=== PATIENT | female | born 2000 | race Caucasian/White ===

== ENCOUNTER 2018-09-20 03:40 | Emergency (ER) | payer SELFPAY ==
[2018-09-20 03:49] VITALS: BP 114/73
--- NOTE | 2018-09-20 04:17 | EDPHY ---
H & P Stated Complaint: mech fall down 6 stairs, hit forehead, poss brief LOC, ETOH Time Seen by Provider: 09/20/18 03:51 HPI/ROS: HPI The patient presents with a fall down approximately 6 stairs onto a wooden floor which occurred just prior to arrival. The patient had been drinking alcohol earlier in the night and believes she lost her footing and fell forward. She denies any loss of consciousness, headache, vomiting, behavioral change, difficulty walking or any weakness. She does not have any other injuries. REVIEW OF SYSTEMS 10 systems were reviewed and negative with the exception of the elements mentioned in the history of present illness. PMHx: Prior concussion Soc Hx: College student, uses alcohol occasionally PHYSICAL General Appearance: Alert, no distress Head: There is a left-sided 2 cm frontal hematoma Eyes: Pupils equal and round no pallor or injection ENT, Mouth: Mucous membranes moist Respiratory: There are no retractions, lungs are clear to auscultation Cardiovascular: Regular rate and rhythm Gastrointestinal: Abdomen is soft and non-tender, no masses, bowel sounds normal Neurological: Alert and oriented x3, cranial nerves 2-12 intact, 5/5 strength in upper and lower extremities which is symmetric. Skin: Warm and dry, no rashes Musculoskeletal: Neck is supple non tender Extremities: symmetrical, full range of motion Psychiatric: Patient is oriented X 3, there is no agitation Source: Patient Exam Limitations: No limitations - Personal History LMP (Females 10-55): 8-14 Days Ago Current Tetanus/Diphtheria Vaccine: Yes Current Tetanus Diphtheria and Acellular Pertussis (TDAP): Yes - Medical/Surgical History Hx Asthma: Yes Hx Chronic Respiratory Disease: No Hx Diabetes: No Hx Cardiac Disease: No Hx Renal Disease: No Hx Cirrhosis: No Hx Alcoholism: No Hx HIV/AIDS: No Hx Splenectomy or Spleen Trauma: No Other PMH: vocal cord dysfunction, concussion, asthma,ADHD Constitutional: Initial Vital Signs Temperature (C) 36.5 C 09/20/18 03:45 Heart Rate 99 09/20/18 03:45 Respiratory Rate 20 09/20/18 03:45 Blood Pressure 114/73 09/20/18 03:45 O2 Sat (%) 99 09/20/18 03:45 O2 Delivery Mode Room Air Allergies/Adverse Reactions: No Known Allergies Allergy (Unverified 09/20/18 03:45) Home Medications: Medication Instructions Recorded Adderall 10 MG (*) 09/20/18 Medical Decision Making Differential Diagnosis: 17-year-old healthy female presents with fall down 6 stairs just prior to arrival in the setting of alcohol intoxication, sustaining frontal hematoma. On exam, has normal neurologic evaluation. She does not have any vision change , behavioral change, vomiting. By nexus 2 criteria, she does not require for CT scan of her head. She could have suffered from a mild concussion and I have discussed this with her. She is to follow up in 1-2 days if she has any ongoing symptoms. Departure - Departure Disposition: Home, Routine, Self-Care Clinical Impression: Fall down stairs Qualifiers: Encounter type: initial encounter Qualified Code(s): W10.8XXA - Fall (on) (from ) other stairs and steps, initial encounter Hematoma of frontal scalp Qualifiers: Encounter type: initial encounter Qualified Code(s): S00.03XA - Contusion of scalp, initial encounter Head injury Qualifiers: Encounter type: initial encounter Qualified Code(s): S09.90XA - Unspecified injury of head, initial encounter Condition: Good Instructions: Head Injury (ED) Additional Instructions: I recommend you take ibuprofen 400 mg every 6 hr as needed if you have a headache. Please use an ice pack on your forehead. Return to the ER if worse in any way. Referrals: GRISEL Bradford,. [Clinic] - As per Instructions
== END 2018-09-20 04:25 | disposition home or self-care (01) ==
DX: S00.03XA Contusion of scalp, initial encounter (principal); W10.8XXA Fall (on) (from) other stairs and steps, initial encounter; Y92.9 Unspecified place or not applicable; Y93.9 Activity, unspecified; Y99.9 Unspecified external cause status

== ENCOUNTER 2018-11-30 14:01 | Emergency (ER) | payer OTHER ==
--- NOTE | 2018-11-30 14:10 | EDPHY ---
General - History Smoking Status: Current some day smoker Time Seen by Provider: 11/30/18 14:10 Narrative: CLINICAL IMPRESSION: Shortness of breath, runny nose, congestion, cough ASSESSMENT/PLAN: Patient is a 18-year-old female with no significant medical history who presents to the emergency department with a constellation of symptoms to include shortness of breath that has been ongoing for 2 weeks, runny nose, congestion, cough, myalgias, intermittent headaches and diarrhea. Patient is afebrile, she is tired appearing however not toxic-appearing on my examination. She was noted to be tachycardic on arrival, unable to PERC out. CBC revealed no evidence of leukocytosis. BMP grossly unremarkable. Influenza negative. Dimer within normal limits. Patient has sudden onset of shortness of breath without any other associated symptoms at original onset, although dimer was negative well's criteria is moderate with concern for possible pulmonary embolism. Proceeded with CTA chest. Her symptoms are consistent with upper respiratory infection, cough and shortness of breath. This could be viral in nature however still concern for pulmonary embolus- results pending at this time. The patient remained hemodynamically stable, heart rate normalized into the 80s. On repeat examination prior to transfer of care to Dr. Wright the patient reports that she is actually feeling better than when she arrived. Her heart rate normalized into the 80s. Dispo pending at this time. DIFFERENTIAL DX: Shortness of breath including but not limited to pulmonary infectious process, COPD, asthma, pulmonary embolus and congestive heart failure. ED COURSE: 1435: Case discussed with Dr. Wright. 1515: On repeat examination the patient's heart rate has normalized into the 80s, she reports feeling better. Still awaiting chest x-ray. 1644: Chest x-ray with mild reactive airway disease, no evidence of consolidation or pneumothorax. Influenza still pending. On repeat exam the patient continues to feel better, heart rate was 86. We discussed reassuring findings of negative D-dimer, discussed CT scanning for definitive imaging to further evaluate etiology of her shortness of breath. The patient refuses CT at this time, she would prefer conservative management with strict return precautions. 1700: In further discussion patient would like to proceed with CT a chest. All aspects of this case were discussed with Dr. Wright, he will resume care of this patient at this time. CHIEF COMPLAINT: Shortness of breath, elevated heart rate, runny nose, congestion, cough HPI: Patient is a 18-year-old female with no significant medical history presents to the emergency department with complaints of shortness of breath escalating over the last 2 weeks, runny nose, congestion, cough, myalgias, intermittent headache and diarrhea. Patient reports 2 weeks ago she had a sudden onset feeling of shortness of breath, it was constant however alleviated when she would sit down. She denied any upper respiratory symptoms or cough at this time. Several days later she did develop runny nose, congestion and cough which worsened her shortness of breath. Since that time her runny nose, congestion and cough have been improving however she is still feeling short of breath. She does report pain upon inspiration across her entire chest, denies any pain at rest. That has been going on for the last 2 weeks as well. She reports subjective fevers, myalgias, intermittent headaches and diarrhea for the last several days. She denies any nausea or vomiting. She denies any abdominal pain. She is currently on control. She was seen at urgent care prior to arrival in sent here with concerns for possible pulmonary embolus. PMH: Denies Pertinent Past Surgical History: Denies Family History: Noncontributory Social History: Denies illicit drug use, occasional cigarette smoking, REVIEW OF SYSTEMS: All other systems negative Constitutional: Fever, chills, decreased appetite. Eyes: No discharge, vision change ENT: Runny nose, congestion. No sore throat, ear pain. Cardiovascular: No palpitations. Respiratory: Cough, shortness of breath. Gastrointestinal: Diarrhea. No abdominal pain, no vomiting. Genitourinary: No hematuria, dysuria, flank pain, pelvic pain Musculoskeletal: Myalgias. No back pain, joint swelling, joint pain. Skin: No rashes, color change. Neurological: Headache. No dizziness, weakness. PHYSICAL EXAM: General Appearance: Patient is well-developed, she is tired appearing however not toxic-appearing. HENT: Normocephalic, atraumatic. Bilateral external ears are normal. Bilateral tympanic membranes are normal with pearly alberto reflex. Nares are clear, mucosa is pink. Oropharynx is clear, uvula is midline. There is no tonsillar enlargement or exudate. The dentition is normal. Eyes: PERRLA, no acute vision change, nystagmus, swelling, discharge, pain or photosensitivity. Conjunctiva pink, no pallor or injection Neck: Supple, nontender, no lymphadenopathy, no midline pain, FROM, no meningismus. Respiratory: There are no retractions, rhonchi noted generalized right lung, no wheeze or rales. Cardiac: Tachycardic, no murmurs or gallops. Gastrointestinal: Abdomen is soft, nontender, bowel sounds normal, no masses/ hernia, no rigidity, guarding or focal peritoneal findings. Neurological: Alert and oriented x 3, CN 2-12 grossly intact, normal gait no ataxia, DTR's intact, normal sensation and strength Skin: Warm, dry, no rashes, no nodules on palpation. Musculoskeletal: Extremities are symmetrical, full range of motion, no tenderness, deformity, swelling, or erythema. Psychiatric: Patient is oriented X 3, there is no agitation. MEDICAL DECISION MAKING: Patient was seen independently. Secondary supervising physician at time of evaluation was Dr. Wright, he also evaluated this patient. Diagnosis: Shortness of breath. New, requires workup Summary: See Assessment and Plan for summary of ED visit Clinical lab tests: ordered / reviewed. Independent visualization of images, tracing, or specimens: Pending. Decision to obtain medical records or history from someone other than the patient: No Review / Summarize previous medical records: None available Discussed patient with another provider: Yes, Dr. Wright Patient Progress: Stable, dispo pending. (Charity Rudd) Medical Decision Making: Independent physician evaluation: I evaluated and participated in the management of the patient. I also evaluated the patient independently. My co-signature indicates that I have reviewed this chart and I agree with the findings and plan of care as documented. My personal H&P findings include: The patient presents the ED with worsening symptoms of an upper respiratory infection. The patient was seen at the [facility] [place] initially. She reports that she is not had symptoms of a significant cough but has had pleuritic chest pain. Physical exam: General Appearance: Alert, no distress Eyes: Pupils equal and round no pallor or injection ENT, Mouth: Mucous membranes moist Respiratory: There are no retractions, lungs are clear to auscultation Cardiovascular: Regular rate and rhythm, tachycardic Gastrointestinal: Abdomen is soft and nontender, no masses, bowel sounds normal Neurological: A&O, normal motor function, normal sensory exam, normal cranial nerves Skin: Warm and dry, no rashes Musculoskeletal: Neck is supple nontender Extremities: symmetrical, full range of motion Psychiatric: Patient is oriented X 3, there is no agitation ED course: Workup in the emergency department included a CT pulmonary angiogram which demonstrates no evidence of a PE. The patient's influenza test is negative. Patient was treated with IV fluids, Toradol and nebulizers. Patient will be discharged home with customary upper respiratory tract infection and bronchitis aftercare instructions. (Arsenio Wright) - Diagnostics Imaging Results: Imaging Impressions Chest X-Ray 11/30/18 14:19 Impression: Airways disease. No pneumonia. Chest/Thorax CTA 11/30/18 16:53 Impression: 1. There is no CT evidence of pulmonary artery thromboemboli. 2. Mild reactive airways' disease, with no confluent infiltrate. 3. There is a 5 mm lateral segment of the right middle lobe nodule, which is likely benign. In this patient with a prior tobacco use history, it is optional to obtain a CT at 12 months. Findings were discussed with BERNA Bray at 17:44, on 11/30/2018. - Objective Vital Signs: Initial Vital Signs Temperature (C) 37.0 C 11/30/18 14:04 Heart Rate 112 H 11/30/18 14:04 Respiratory Rate 16 11/30/18 14:04 Blood Pressure 95/73 L 11/30/18 14:04 O2 Sat (%) 98 11/30/18 14:04 O2 Delivery Mode Room Air Allergies/Adverse Reactions: No Known Allergies Allergy (Unverified 11/30/18 14:03) Laboratory Results: Laboratory Results 11/30/18 14:30 11/30/18 14:30 11/30/18 11/30/18 11/30/18 16:00 14:30 14:30 WBC RBC Hgb Hct MCV MCH MCHC RDW Plt Count MPV Neut % (Auto) Lymph % (Auto) [place] % (Auto) Eos % (Auto) Baso % (Auto) Nucleat RBC Rel Count Absolute Neuts (auto) Absolute Lymphs (auto) Absolute Monos (auto) Absolute Eos (auto) Absolute Basos (auto) Absolute Nucleated RBC Immature Gran % Immature Gran # D-Dimer Sodium 138 mEq/L mEq/L (135-145) Potassium 4.1 mEq/L mEq/L (3.5-5.2) Chloride 104 mEq/L mEq/L (97-110) Carbon Dioxide 23 mEq/l mEq/l (22-31) Anion Gap 11 mEq/L mEq/L (6-14) BUN 12 mg/dL mg/dL (7-23) Creatinine 0.9 mg/dL mg/dL (0.6-1.0) Estimated GFR > 60 Glucose 80 mg/dL mg/dL (70-100) Calcium 10.0 mg/dL mg/dL (8.5-10.4) Beta HCG, Qual NEGATIVE Nasal Influenza A PCR NEGATIVE FOR FLU A (NEGATIVE) Nasal Influenza B PCR NEGATIVE FOR FLU B (NEGATIVE) 11/30/18 11/30/18 14:30 14:30 WBC 5.07 10^3/uL 10^3/uL (3.80-9.50) RBC 5.29 10^6/uL 10^6/uL (4.18-5.33) Hgb 16.5 g/dL H g/dL (12.6-16.3) Hct 48.6 % H % (38.0-47.0) MCV 91.9 fL fL (81.5-99.8) MCH 31.2 pg pg (27.9-34.1) MCHC 34.0 g/dL g/dL (32.4-36.7) RDW 11.8 % % (11.5-15.2) Plt Count 237 10^3/uL 10^3/uL (150-400) MPV 9.2 fL fL (8.7-11.7) Neut % (Auto) 57.0 % % (39.3-74.2) Lymph % (Auto) 34.9 % % (15.0-45.0) [place] % (Auto) 5.3 % % (4.5-13.0) Eos % (Auto) 1.2 % % (0.6-7.6) Baso % (Auto) 1.2 % % (0.3-1.7) Nucleat RBC Rel Count 0.0 % % (0.0-0.2) Absolute Neuts (auto) 2.89 10^3/uL 10^3/uL (1.70-6.50) Absolute Lymphs (auto) 1.77 10^3/uL 10^3/uL (1.00-3.00) Absolute Monos (auto) 0.27 10^3/uL L 10^3/uL (0.30-0.80) Absolute Eos (auto) 0.06 10^3/uL 10^3/uL (0.03-0.40) Absolute Basos (auto) 0.06 10^3/uL 10^3/uL (0.02-0.10) Absolute Nucleated RBC 0.00 10^3/uL 10^3/uL (0-0.01) Immature Gran % 0.4 % % (0.0-1.1) Immature Gran # 0.02 10^3/uL 10^3/uL (0.00-0.10) D-Dimer < 0.27 ug/mLFEU ug/mLFEU (0.00-0.50) Sodium Potassium Chloride Carbon Dioxide Anion Gap BUN Creatinine Estimated GFR Glucose Calcium Beta HCG, Qual Nasal Influenza A PCR Nasal Influenza B PCR Medications Given: Discontinued Medications Sodium Chloride (Ns) 1,000 mls @ 0 mls/hr IV ONCE ONE PRN Reason: Wide Open Stop: 11/30/18 14:20 Last Admin: 11/30/18 14:39 Dose: 1,000 mls Departure - Departure Disposition: Home, Routine, Self-Care Clinical Impression: URI with cough and congestion Condition: Good Instructions: Upper Respiratory Infection (ED), Shortness of Breath (ED) Additional Instructions: DISCHARGE INSTRUCTIONS FROM YOUR DOCTOR Thank you for visiting our emergency department today. Please keep in mind that discharge from the emergency department does not mean that there is nothing wrong - it simply means that we have not identified an emergency condition that requires further evaluation or treatment in the hospital. You should always plan to follow up with primary care for re-evaluation of your condition in the next 2-3 days. Rest, push non-diuretic, non-caffeinated fluids, consume a healthy diet, all to help support your immune system fight infection. Consider running a coolmist humidifier in the bedroom. Consider warm salt water gargles for sore throat. Consider over the counter saline nasal washes ie: Neilmed sinus rinse, Hubbard or Wheeler. Consider over the counter Mucinex for congestion and/or cough as directed. For pain control: You may take Tylenol, I recommend 500-1000 mg every 6-8 hours as needed. Take with food and a full glass of water. Stop taking if this is upsetting her stomach. Do not exceed 4000 mg in a 24 hr period. You may also take ibuprofen, recommend 400 mg every 6 hr. Take with food and a full glass of water. Stop taking if this upsets her stomach. Do not exceed 2400 mg in a 24 hr period. As discussed, in the setting of a viral illness, you may develop a secondary bacterial infection, requiring an antibiotic. Watch for new or changing symptoms ie: new ear pain or drainage, increasing cough, shortness of breath, high fever, or any other concerning symptoms. Schedule a follow-up appointment with your primary care physician in the next 2- 3 days for re-evaluation, sooner for any new concerns. Return for high fever, shaking chills, severe headache, facial redness or swelling, drainage from your ears, difficulty breathing or swallowing, throat tightness, drooling, change in voice, inability to open your mouth normally, severe neck pain, neck stiffness, shortness of breath, wheezing, noisy breathing , coughing up blood, chest pain, vomiting, diarrhea, bloody stools, decreased urine output or other concerns for dehydration, bloody urine, rash, dizziness, weakness, fainting, or for any other new, worsening or worrisome symptoms. People present with illnesses and injuries in different ways, and it is always possible that we have missed something. You may always return for re-evaluation if symptoms worsen or if they are not improving or if you develop new/different symptoms. Again, thank you for choosing our emergency department. We hope that you feel better. Referrals: VIVI KHAN [Other] - As per Instructions Rachel Wynn MD [Medical Doctor] - 2-3 days, call for appt. ( Please establish care with a primary care provider while you are living in [place])
[2018-11-30] MEDS ORDERED: NS 1,000 ML IV ONE (14:19)
[2018-11-30 14:49] LABS: PLATELET COUNT 237 10^3/uL (150-400)
[2018-11-30] MEDS ORDERED: IOPAMIDOL (ISOVUE 370) 100 ML BTL IV ONE (16:59)
[2018-11-30 18:17] VITALS: BP 100/71
== END 2018-11-30 18:17 | disposition home or self-care (01) ==
DX: J06.9 Acute upper respiratory infection, unspecified (principal); R05 Cough
CPT/HCPCS: Q9967